=== PATIENT | female | born 1990 | race Asian ===

== ENCOUNTER 2022-01-05 00:40 | Inpatient (IN) | payer OTHER ==
[2022-01-05] MEDS ORDERED: AMPICILLIN - 2 GM in SODIUM CHLORIDE 100 ML IVPB ONE (01:30)
[2022-01-05] MEDS: ELECTROLYTE-148 SOLN 1,000 ML IV SCH (01:30)
[2022-01-05] MEDS ORDERED: AMPICILLIN SODIUM 2 GM VIAL ONE (01:35)
[2022-01-05] MEDS ORDERED: DINOPROSTONE 10 MG VAGINAL SUPPOSITORY VG ONE (01:40)
[2022-01-05 02:44] LABS: BASO % 0.2 % (0-2.0); EOS % 0.4 % (0-4.5); HEMOGLOBIN 12.8 GM/dL (10.7-15.3); LYMPH % 17.4 % (8-40); MCH 31.8 pg (25.7-33.7); MCHC 34.6 g/dl (32.0-36.0); MEAN CELL VOLUME 91.9 fl (80-96); MEAN PLT VOLUME 8.2 fl (7.5-11.1); MONO % 8.6 % (3.8-10.2); NEUT % 73.4 % (42.8-82.8); PLATELET COUNT 257 10^3/uL (134-434); RBC 4.03 M/mm3 (3.60-5.2); RDW 13.1 % (11.6-15.6); WHITE BLOOD COUNT 10.4 K/mm3 (4.0-10.0)
[2022-01-05 02:53] LABS: INR 0.96 (0.83-1.09)
[2022-01-05 02:56] LABS: ACTIVATED PTT 39.7 SECONDS (25.2-36.5)
[2022-01-05 03:04] LABS: CALCIUM 9.6 mg/dL (8.5-10.1)
[2022-01-05 03:05] LABS: BLOOD UREA NITROGEN 9.9 mg/dL (7-18)
[2022-01-05 03:08] LABS: CREATININE 0.8 mg/dL (0.55-1.3)
[2022-01-05 03:09] LABS: BILIRUBIN,TOTAL 0.2 mg/dL (0.2-1)
[2022-01-05 03:44] VITALS: BMI 31.7
[2022-01-05] MEDS: AMPICILLIN - 1 GM in SODIUM CHLORIDE 100 ML IVPB SCH ×4 (05:30→17:40)
[2022-01-05] MEDS ORDERED: AMPICILLIN SODIUM 1 GM VIAL ONE ×4 (05:40→17:42)
[2022-01-05] MEDS ORDERED: BUTORPHANOL TARTRATE 1 MG/ML VIAL IVPB PRN (07:57)
[2022-01-05] MEDS ORDERED: PROMETHAZINE HCL 25 MG/1 ML VIAL IVPUSH PRN (07:57)
[2022-01-05] MEDS ORDERED: ELECTROLYTE-148 SOLN 1,000 ML IV SCH (08:00)
[2022-01-05] MEDS ORDERED: OXYTOCIN 30 UNITS in 0.9% NS 30 UNIT/500 ML INFUS.BAG IVPB ONE (09:52)
[2022-01-05] MEDS ORDERED: OXYTOCIN 30 UNITS in 0.9% NS 30 UNIT/500 ML INFUS.BAG IVPB SCH (11:15)
[2022-01-05] MEDS ORDERED: FENTANYL/BUPIVACAINE/NS/PF - PCEA - 50 ML DISP.SYRIN EP ONE ×2 (12:23→16:33)
[2022-01-05] MEDS ORDERED: BUPIVACAINE HCL/PF 0.25% (2.5MG/ML) 10 ML VIAL ONE (12:36)
[2022-01-05] MEDS ORDERED: LIDOCAINE HCL/EPINEPHRINE/PF 20 ML VIAL ONE (12:36)
[2022-01-05] MEDS ORDERED: NALOXONE HCL 0.4 MG/ML VIAL IVPUSH PRN (13:06)
[2022-01-05] MEDS ORDERED: FENTANYL/BUPIVACAINE/NS/PF - PCEA - 50 ML DISP.SYRIN EP SCH (13:15)
[2022-01-05 13:16] LABS: POC NITRAZINE POS
[2022-01-05] MEDS ORDERED: OXYTOCIN 20 UNITS in 0.9% NS 20 UNIT/1,000 ML INFUS.BAG IV ONE (15:49)
[2022-01-05] MEDS ORDERED: BISACODYL 10 MG SUPP.RECT RC PRN (18:45)
[2022-01-05] MEDS ORDERED: WITCH HAZEL 50% (TUCKS) 40 PAD/JAR PAD TP PRN (18:45)
[2022-01-05] MEDS ORDERED: BENZOCAINE 28 GM HEMORRHOIDAL OINTMENT TP PRN (18:45)
[2022-01-05] MEDS ORDERED: BENZOCAINE 20% 57 GM BOTTLE TP PRN (18:45)
[2022-01-05] MEDS ORDERED: oxyCODONE HCL 5 MG TABLET PO PRN (18:45)
[2022-01-05] MEDS ORDERED: METHYLERGONOVINE MALEATE 0.2 MG/1 ML AMP IM PRN (18:45)
[2022-01-05] MEDS ORDERED: OXYTOCIN 20 UNITS in 0.9% NS 20 UNIT/1,000 ML INFUS.BAG IV SCH (18:45)
[2022-01-05] MEDS ORDERED: IBUPROFEN 600 MG TABLET (FP) PO ONE (19:26)
[2022-01-06] MEDS: IBUPROFEN 600 MG TABLET (FP) PO PRN ×4 (00:04→19:22)
[2022-01-06] MEDS: ELECTROLYTE-148 SOLN 1,000 ML IV SCH (01:45)
[2022-01-06 07:17] LABS: BASO % 0.2 % (0-2.0); EOS % 0.5 % (0-4.5); HEMATOCRIT 28.5 % (32.4-45.2); HEMOGLOBIN 9.7 GM/dL (10.7-15.3); LYMPH % 15.7 % (8-40); MCH 31.3 pg (25.7-33.7); MCHC 33.9 g/dl (32.0-36.0); MEAN CELL VOLUME 92.6 fl (80-96); MEAN PLT VOLUME 7.8 fl (7.5-11.1); MONO % 8.8 % (3.8-10.2); NEUT % 74.8 % (42.8-82.8); PLATELET COUNT 219 10^3/uL (134-434); RBC 3.08 M/mm3 (3.60-5.2); RDW 12.7 % (11.6-15.6); WHITE BLOOD COUNT 12.7 K/mm3 (4.0-10.0)
[2022-01-06] MEDS: ACETAMINOPHEN 325 MG TABLET (FP) PO PRN ×2 (14:40→21:47)
[2022-01-06] MEDS: FERROUS SO4 325 MG TABLET (FP) PO SCH (14:40)
[2022-01-06] MEDS ORDERED: SENNOSIDES/DOCUSATE COMBO (SENNA PLUS) TABLET (UD) PO PRN (22:00)
[2022-01-07] MEDS: IBUPROFEN 600 MG TABLET (FP) PO PRN ×2 (03:45→09:53)
[2022-01-07 09:32] VITALS: BP 133/86; PULSE 91; RESP 18; TEMP 98
[2022-01-07] MEDS: FERROUS SO4 325 MG TABLET (FP) PO SCH (09:53)
== END 2022-01-07 13:45 | disposition home or self-care (01) | DRG 807 ==
LOC: JDEL 00:40 → JLDR 01:05 → J3W 20:38
PROVIDERS: ADMIT Specialist; ATTEND Specialist
PROC: 10E0XZZ Delivery of Products of Conception, External Approach (ICD-10-PCS; principal; 2022-01-05)
PROC: 0W8NXZZ Division of Female Perineum, External Approach (ICD-10-PCS; 2022-01-05)
DX: O80 Encounter for full-term uncomplicated delivery (principal); Z37.0 Single live birth; Z3A.39 39 weeks gestation of pregnancy
CPT/HCPCS: 36415; 59409; 80053; 83986-QW; 85025; 85610; 85730; 86780; 86850; 86900; 86901; C9803-CS; U0003; U0005